=== PATIENT | male | born 1965 | race Caucasian/White ===

== ENCOUNTER 2019-08-28 07:35 | Emergency (ER) | payer BC ==
[2019-08-28] MEDS ORDERED: Sodium Chloride 0.9% 10 ML Syringe FLUSH PRN (08:17)
[2019-08-28] MEDS ORDERED: Ondansetron 4 MG/2 ML SDV IVPUSH ONE (08:17)
[2019-08-28] MEDS ORDERED: HYDROmorphone 0.5 MG/0.5 ML Syringe IVPUSH ONE (08:17)
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
--- NOTE | 2019-08-29 13:33 | CT ---
CT abdomen and pelvis Technique: Multiple axial sections were obtained from above the dome of the diaphragm inferiorly through the pubic symphysis. Intravenous and oral contrast not utilized. Study has been performed as a ureteral stone protocol. Comparison: No previous abdominal imaging is available. Findings: Inflammatory change noted around the right kidney. Dilated collecting system of the right kidney is seen as well as dilated ureter. These findings are caused by a 3.5 mm obstructing stone within the distal right ureter located closed to the UVJ. No other abnormal calcifications are seen along the course of the ureters. No renal calculi are appreciated. Other findings: Large hiatal hernia is noted. Nodule noted within the left lung base measuring about 8 mm in size. Mild interstitial fibrosis seen within both lung bases. Large hiatal hernia is noted. Diffuse fatty infiltration is seen within the liver. Spleen appears within normal limits. Adrenal glands show no nodule. Pancreas is within normal limits. Aorta shows no aneurysm. No retroperitoneal adenopathy or mesenteric abnormalities are seen. Appendix is seen and is felt to be within normal limits. No pelvic mass or adenopathy is seen. Small fat-containing bilateral inguinal hernias are noted. Small fat-containing umbilical hernia is noted. Bone window settings were reviewed which show slight degenerative change within the spine. No acute osseous finding is appreciated. Impression: 1. 3.5 mm obstructing stone within the distal right ureter located slightly proximal to the UVJ. 2. 8 mm nodule within the left lung base. No prior study is available to confirm stability. Recommend noncontrast chest CT study in 6 months as part of routine follow-up protocol. This follow-up chest CT would occur in February, 3. Other findings as noted above which are nonacute. Diagnostic code #9 This report was dictated in MDT I agree with preliminary report from [facility], finalized on 08/28/19, 11:02 AM Central Daylight Time
== END 2019-08-28 10:31 | disposition home or self-care (01) ==
LOC: JD.ED 07:35
DX: N20.2 Calculus of kidney with calculus of ureter (principal); Z79.899 Other long term (current) drug therapy; Z87.891 Personal history of nicotine dependence
CPT/HCPCS: 74176; 81003; 96374; 96375; 99284; J1170; J2405; 99283